=== PATIENT | male | born 1985 | race Caucasian/White ===

== ENCOUNTER 2020-10-01 14:02 | Emergency (ER) | payer OTHER ==
[~2020-10-01 14:02] MED LIST: BACTRIM DS TAB1 EACH PO; BENTYL 10MG CAP10 MG PO; BENTYL 20MG TAB20 MG PO; CEPHALEXIN500 MG PO; FLEXERIL 10 MG10 MG PO; IBUPROFEN600 MG PO; IMITREX50 MG PO; KRISTALOSE10 GM PO; LODINE CAP 300300 MG PO; NORFLEX 100 MG100 MG PO; ONDANSETRON ODT4 MG SL; PROTONIX20 MG PO; PROTONIX40 MG PO; TORADOL 10 MG T10 MG PO; ZOFRAN 4 MG TAB4 MG PO; ZOFRAN ODT 4 MG4 MG PO; ZOFRAN4 MG PO
[2020-10-01 15:07] LABS: HEMOGLOBIN 17.2 gm/dl (14.0-17.5); RED BLOOD COUNT 5.2 M/UL (4.20-5.50); WHITE BLOOD COUNT 9.5 K/UL (4.5-11.0)
[2020-10-01 15:43] LABS: BUN/CREATININE RATIO 12 (0-10)
[2020-10-01] MEDS ORDERED: TORADOL 10 MG T10 MG PO (16:48)
[2020-10-01] MEDS ORDERED: ZOFRAN ODT 4 MG4 MG PO (16:48)
== END 2020-10-01 17:17 | disposition home or self-care (01) ==
LOC: ER1 14:02
PROVIDERS: Emergency Medicine
DX: G43.909 Migraine, unspecified, not intractable, without status migrainosus (principal); F17.210 Nicotine dependence, cigarettes, uncomplicated
CPT/HCPCS: 70450; 80053; 82550; 82553; 84484; 85025; 86140; 96374; 96375; 99284; J1200; J1885; J7030

== ENCOUNTER 2020-10-05 14:31 | Emergency (ER) | payer OTHER | END 2020-10-05 17:59 | disposition left against medical advice (07) | LOC: ER1 14:31 | DX: R51.9 Headache, unspecified (principal); Z53.21 Procedure and treatment not carried out due to patient leaving prior to being seen by health care provider ==

== ENCOUNTER 2020-10-07 06:49 | Emergency (ER) | payer OTHER | END 2020-10-07 08:28 | disposition left against medical advice (07) | LOC: ER1 06:49 | DX: G43.909 Migraine, unspecified, not intractable, without status migrainosus (principal); Z53.21 Procedure and treatment not carried out due to patient leaving prior to being seen by health care provider ==

== ENCOUNTER → 2021-02-20 | Outpatient (CLI) | payer OTHER ==
[2021-02-21 08:13] LABS: RPR Non Reactive (Non Reactive)
[2021-02-21 17:09] LABS: LYME IGG/IGM AB <0.91 ISR (0.00-0.90)
== END ==
LOC: LAB 14:09
PROVIDERS: Psychiatry & Neurology Neurology
DX: G62.9 Polyneuropathy, unspecified (principal); G43.719 Chronic migraine without aura, intractable, without status migrainosus; R20.2 Paresthesia of skin; R20.0 Anesthesia of skin; R51.9 Headache, unspecified
CPT/HCPCS: 36415; 82570; 82607; 82746; 83655; 83921; 84443; 86592; 86618

== ENCOUNTER → 2021-07-30 | Outpatient (CLI) | payer OTHER ==
[~2021-07-30] MED LIST changes: +ALLEGRA ALLERG180 MG PO; +BOTOX200 UNIT IM; +CYMBALTA60 MG PO; +IBUPROFEN800 MG PO; +NEURONTIN300 MG PO; +PEPCID40 MG PO; +PREVACID 30 MG30 MG PO; +TOPAMAX50 MG PO
== END ==
LOC: HEART 5 16:30
DX: U07.0 Vaping-related disorder (principal)
CPT/HCPCS: 94060; 94729